=== PATIENT | male | born 1995 | race African-American/Black ===

== ENCOUNTER 2020-12-04 18:56 | Emergency (ER) | payer OTHER, SELFPAY ==
[2020-12-04 19:05] VITALS: BP 149/65; PULSE 72; RESP 12; TEMP 36.6; O2SAT 99; BMI 28.0
[2020-12-04 20:03] LABS: Bacteria Urine Few (2-10); Culture Indicated Urine Specimen Cultured; RBC Urine 30-100/HPF (0-5/HPF); Squamous Epithelial Cell Urine 1-5 /HPF (0-5/HPF); WBC Urine 1-5/HPF (0-5/HPF)
--- NOTE | 2020-12-04 20:40 | ED_ITS ---
HPI - Male Genitourinary General Chief complaint: Urogenital-Male Stated complaint: Hurts When Pee, Blood in Urine R/O Rhabdo and RPN Time Seen by Provider: 12/04/20 20:28 Source: patient Mode of arrival: Ambulatory History of Present Illness HPI Narrative: Otherwise healthy 25-year-old young man with a history of sickle cell trait, recently returned from deployment and had unprotected intercourse about a week ago. 2-3 days after that he began having some dysuria at the end of urination without significant urgency or frequency. He describes no abdominal pain, suprapubic pain, flank pain. He has had no fevers or chills. He does not described any penile discharge, lesions, sores or testicular pain. [place] in [place] urine. He comes in for further evaluation Review of Systems Review of Systems Narrative: Remainder of complete review of systems is otherwise unremarkable except for that included in the HPI. Patient History Medical History Sickle cell trait Social History Smoking Status: Current some day smoker Smoking Status: Current some day smoker Substance Use Type: does not use Exam Narrative Exam Narrative: General: Alert appropriate in no acute distress Respiratory: Able to speak in full sentences, no obvious respiratory distress Skin: No obvious rashes, warm and dry Abdomen: No suprapubic tenderness, no abdominal pain. No flank pain. Neurologic: Grossly intact no obvious asymmetries or abnormalities Psych: appropriate insight and affect, cooperative Initial Vital Signs Initial Vital Signs: Vital Signs Temperature 98 F 12/04/20 19:05 Pulse Rate 72 12/04/20 19:05 Respiratory Rate 12 12/04/20 19:05 Blood Pressure 149/65 H 12/04/20 19:05 Pulse Oximetry 99 12/04/20 19:05 Course Orders Ordered: ED Orders 12/04/20 19:32 Chlamydia Gonorrhea PCR -URINE Stat Urine Culture Stat Urine Microscopic Stat Discontinued Medications Azithromycin (Azithromycin 250 Mg Tablet) 1,000 mg PO NOW ONE Stop: 12/04/20 20:40 Ceftriaxone Sodium (Ceftriaxone 1,000 Mg Vial) 500 mg IM NOW ONE Stop: 12/04/20 20:40 Lidocaine HCl (Lidocaine 1% 20 Ml) 2.1 ml INJ NOW ONE Stop: 12/04/20 20:40 Vital Signs Vital signs: Vital Signs - 8 hr 12/04/20 19:05 Temperature 98 F Pulse Rate 72 Respiratory Rate 12 Blood Pressure 149/65 H Pulse Oximetry 99 MDM - Male Genitourinary Lab Data Labs: Lab Results 12/04/20 Range/Units 19:32 Urine RBC 30-100/hpf H (0-5/HPF) Urine WBC 1-5/hpf (0-5/HPF) Ur Squamous Epith Cells 1-5 /hpf (0-5/HPF) Urine Bacteria Few (2-10) H (None) Ur Culture Indicated? Specimen cultured Urine Dip Bedside Urine Glucose Negative Bedside Urine Bilirubin - Negative Bedside Urine Ketone - Negative Urine Specific [place] 1.020 Bedside Urine Occult Blood +++ Bedside Urine pH 6.0 Bedside Urine Protein - Negative Bedside Urine Urobilinogen - Negative Bedside Urine Nitrite - Negative Bedside Urine Leukocytes +/- 15 Esterase MDM Narrative Medical decision making narrative: 25-year-old gentleman with signs and symptoms consistent with STI or UTI and recent unprotected intercourse. He is given 500 mg of IM ceftriaxone and a g of azithromycin. Cultures are obtained. As long as he is improving he likely does not need additional workup. [place] in [place] urine and suggested workup for rhabdomyolysis as well as kidney disease. There is no clinical evidence of either at this time and with the clinical history of a sexual exposure symptoms starting shortly there after and minimal white cells in his urine this suspicion for chlamydia is high enough that we will simply treat him symptomatically for both gonorrhea and chlamydia and asked to follow-up with his primary care physician. He continues to have asymptomatic hematuria he can proceed with outpatient workup that time. Concerns and plan reviewed with patient questions are answered and he is safe for home discharge Discharge Plan Departure Patient Disposition: Home Clinical Impression: Urinary tract infection Qualifiers: Urinary tract infection type: urethritis Qualified Code(s): N34.2 - Other urethritis Instructions: DI for Gonorrhea, DI for Chlamydia, DI for Urinary Tract Infection (UTI) Activity Restrictions/Additional Instructions: Thank you for coming in today Your urine has some white blood cells, the cells fight infection, some bacteria and some red blood cells as well. With the symptoms that your having, I suspect you have chlamydia. I am also concerned about gonorrhea as well as simple bladder infection. In the ER you are given a shot of ceftriaxone and 1 g of azithromycin. These antibiotics should effectively treat all of the options above. Cultures had been done and should be available within the next 2-3 days. If you do not hear from 1 of our nurses with results, you can call and check. If you have worsening symptoms, developed abdominal pain or pain in your kidney area, fever or worsening bloody urine you do need to come back to the emergency department With the red blood cells and some of the other findings seen on urine urinalysis, you may need outpatient follow-up to make sure you do not have underlying kidney issues. Please schedule an appointment with your primary care doctor in 1-2 weeks. Once your symptoms are gone in your feeling better it will be appropriate to recheck a urinalysis and make sure all of the findings have resolved. Remember, condoms are your friend! I hope you heal quickly
[2020-12-04] MEDS: cefTRIAXone 1,000 MG VIAL 500 MG IM (21:01)
[2020-12-04] MEDS: AZITHROMYCIN 250 MG TABLET 1000 MG PO (21:01)
[2020-12-04] MEDS: LIDOCAINE 1% 20 ML 2.1 ML INJ (21:02)
[2020-12-04 21:13] LABS: Urine N gonorrhoeae NOT DETECTED
[2020-12-04 21:21] VITALS: BP 127/75; PULSE 62; O2SAT 100
[2020-12-04 21:32] LABS: Urine Chlamydia NOT DETECTED
== END 2020-12-04 21:21 | disposition home or self-care (01) ==
PROVIDERS: Emergency Provider Emergency Medicine
DX: N34.2 Other urethritis (principal)
CPT/HCPCS: 81003; 81015; 87086; 87491; 87591; 96372; 99283; J0696